=== PATIENT | male | born 1965 | race Two or more races ===

== ENCOUNTER 2024-09-01 08:36 | Inpatient (IN) | payer OTHER ==
[~2024-09-01] VITALS: Ht 177.8 cm; Wt 79.5 kg
[2024-09-01] MEDS: ACETAMINOPHEN 500 MG TAB or CAP PO ONE (09:00)
[2024-09-01] MEDS: LACTATED RINGER'S 2,200 ML IV ONE (09:15)
--- NOTE | 2024-09-01 09:15 | ECG ---
[facility] Test Date: 2024-09-01 Test Time: 08:57:26 Pat Name: MACIE NORIEGA Department: [facility] ED Patient ID: [id number] Room: 0270 Gender: M Wet Sander: gp : 1965 Requested By: VINICIUS SHEFFIELD Order Number: [id number] Reading MD: Alexandre Georges Measurements Intervals Tea Rate: 115 P: 59 OH: 110 QRS: 72 QRSD: 84 T: 13 QT: 308 QTc: 426 Interpretive Statements Sinus tachycardia Minimal ST depression, diffuse leads Electronically Signed On 09-03-2024 17:49:39 PDT by Alexandre Georges Please click the below link to view image of tracing.
[2024-09-01] MEDS: SODIUM CHLORIDE 0.9% 1,000 ML IV ONE (09:20)
--- NOTE | 2024-09-01 09:20 | ED.PDOC ---
General HPI Comments 58 y/o M, with PMHx of COPD, UTI's , and pneumonia presents to the ED for CC of urinary. Patient states, he has been experiencing suprapubic abdominal pain with associated bilateral flank pain and back pain onset, q4wytve. Patient reports, that he has had increased frequency. Upon arrival to the ED, patient is febrile with a slight temperature at 100.3F. Patient denies nausea, vomiting, or diarrhea. No other associated symptoms, modifiers, recent injuries or sick contacts present at this time. Chief Complaint: urinary Time Seen by MD: 09:00 Reviewed notes: Nurses Notes, Medications, Allergies Allergies: Coded Allergies: NO KNOWN ALLERGIES (Unverified , 09/01/24) Information Source: Patient Mode of Arrival: Ambulatory Severity: Moderate Inability to void: None Timing: Weeks Duration: Since onset Prehospital treatment: None Onset: Spontaneous Symptoms: Frequency History of: UTI Location: Suprapubic, (R) Flank, (L)Flank Penile discharge: None Modifying factors: None associated signs and symptoms: Fever, Flank Pain, Back Pain, Dysuria, Frequency Past Medical History PAST MEDICAL HISTORY: COPD, UTI'S Surgical History: Denies all surgeries Family History Family History: Unknown Social History Smoker: Non-Smoker Alcohol: Denies ETOH Use Drugs: Denies Drug Use Lives In: Home Constitutional: denies: chills, diaphoresis, fatigue, fever, malaise, sweats, weakness, others EENTM: denies: blurred vision, double vision, ear bleeding, ear discharge, ear drainage, ear pain, ear ringing, eye pain, eye redness, hearing loss, mouth pain, mouth swelling, nasal discharge, nose bleeding, nose congestion, nose pain, photophobia, tearing, throat pain, throat swelling, voice changes, others Respiratory: denies: cough, hemoptysis, orthopnea, SOB at rest, shortness of breath, SOB with excertion, stridor, wheezing, others Cardiovascular: denies: chest pain, dizzy spells, diaphoresis, Dyspnea on exertion, edema, irregular heart beat, left arm pain, lightheadedness, palpitations, PND, syncope, others Gastrointestinal: reports: abdominal pain; denies: abdomen distended, blood streaked bowels, constipated, diarrhea, dysphagia, difficulty swallowing, hematemesis, melena, nausea, poor appetite, poor fluid intake, rectal bleeding, rectal pain, vomiting, others Genitourinary: reports: dysuria, flank pain, frequency; denies: burning, hematuria, incontinence, penile discharge, penile sore, pain, testicle pain, testicle swelling, urgency, others Neurological: denies: dizziness, fainting, headache, left sided numbness, left sided weakness, numbness, paresthesia, pre-existing deficit, right sided numbness, right sided weakness, seizure, speech problems, tingling, tremors, weakness, others Musculoskeletal: reports: back pain; denies: gout, joint pain, joint swelling, muscle pain, muscle stiffness, neck pain, others Integumetry: denies: bruises, change in color, change in hair/nails, dryness, laceration, lesions, lumps, rash, wounds, others Allergic/Immunocompromised: denies: Difficulty Healing, Frequent Infections, Hives, Itching, others Hematologic/Lymphatic: denies: anemia, blood clots, easy bleeding, easy bruising, swollen glands, others Endocrine: denies: excessive hunger, excessive sweating, excessive thirst, excessive urination, flushing, intolerance to cold, intolerance to heat, unexplained weight gain, unexplained weight loss, others Psychiatric: denies: anxiety, bipolar disorder, depression, hopeless, panic disorder, schizophrenia, sleepless, suicidal, others All Other Systems: Reviewed and Negative Physical Exam General Appearance: No Apparent Distress, Normal, Other (febrile) HEENT: Normal ENT Inspection, Pharynx Normal Neck: Full Range of Motion, Non-Tender, Normal, Normal Inspection Respiratory: Chest Non-Tender, Lungs Clear, No Accessory Muscle Use, No Respiratory Distress, Normal Breath Sounds Cardiovascular: No Edema, No Murmur, No Gallop, Normal Peripheral Pulses, Regular Rate/Rhythm Breast Exam: Deferred Gastrointestinal: No Organomegaly, Non Tender, No Pulsatile Mass, Normal Bowel Sounds, Soft Genitalia: Deferred Pelvic: Deferred Rectal: Deferred Extremities: No calf tenderness, Normal capillary refill, Normal inspection, Normal range of motion, Non-tender, No pedal edema Musculoskeletal : Apperance: Normal Neurologic: Alert, welfare specialist II-XII nml as Tested, No Motor Deficits, Normal Affect, Normal Mood, No Sensory Deficits Cerebellar Function: Normal Reflexes: Normal Skin: Dry, Normal Color, Warm Lymphatic: No Adenopathy Was a procedure done? Was a procedure done?: No Differential Diagnosis Kidney stone (Female): N/A Kidney stone (Male): Pyelonephritis, Urinary obstruction, Urinary tract infection Penile/Scrotal: N/A Urinary Problem (Male): Plelonephritis Urinary Problem (Female): N/A X-Ray, Labs, Meds, VS Vital Signs Date Time Temp Pulse Resp B/P (MAP) Pulse Ox O2 Delivery O2 Flow Rate FiO2 09/01/24 10:52 86 18 98/59 (72) 98 09/01/24 09:34 98.7 101 18 90/55 (67) 94 98.7 09/01/24 09:34 106 18 92 Room Air 09/01/24 09:00 100.3 09/01/24 08:57 115 09/01/24 08:55 100.3 120 16 93/64 (74) 98 100.3 Lab Test 09/01/24 09:35 09/01/24 08:47 Range/Units White Blood Count 22.9 H 4.4-10.8 10^3/uL Red Blood Count 4.45 L 4.5-5.90 10^6/uL Hemoglobin 13.9 13.5-17.5 g/dL Hematocrit 40.3 L 41.0-53.0 % Mean Corpuscular Volume 90.6 80.0-100.0 fL Mean Corpuscular Hemoglobin 31.3 28.0-32.0 pg Mean Corpuscular Hemoglobin Concent 34.5 32.0-36.0 g/dL Red Cell Distribution Width 13.4 11.8-14.3 % Platelet Count 176 140-450 10^3/uL Mean Platelet Volume 8.6 6.9-10.8 fL Neutrophils (%) (Auto) 86.9 H 37.0-80.0 % Lymphocytes (%) (Auto) 3.2 L 10.0-50.0 % Monocytes (%) (Auto) 9.8 0.0-12.0 % Eosinophils (%) (Auto) 0.0 0.0-7.0 % Basophils (%) (Auto) 0.1 0.0-2.0 % Neutrophils # (Auto) 19.9 H 1.6-8.6 10 ^3/uL Lymphocytes # (Auto) 0.7 0.4-5.4 10 ^3/uL Monocytes # (Auto) 2.2 H 0-1.3 10 ^3/uL Eosinophils # (Auto) 0 0-0.8 10 ^3/uL Basophils # (Auto) 0 0-0.2 10 ^3/uL Nucleated Red Blood Cells 0.0 % Prothrombin Time 12.2 H 9.3-11.8 sec Prothrombin Time INR 1.17 H 0.9-1.15 Activated Partial Thromboplast Time 36.6 H 24.5-34.5 SEC Sodium Level 133 L 136-145 mmol/L Potassium Level 4.2 3.5-5.1 mmol/L Chloride Level 101 98-107 mmol/L Carbon Dioxide Level 23 20-31 mmol/L Anion Gap 9 5-15 Blood Urea Nitrogen 20 9-23 mg/dL Creatinine 1.42 H 0.700-1.30 mg/dL Glomerular Filtration Rate Calc 58 >90 mL/min BUN/Creatinine Ratio 14.1 10.0-20.0 Serum Glucose 131 H 74-106 mg/dL Lactic Acid Level 1.3 0.4-2.0 mmol/L Calcium Level 9.0 8.7-10.4 mg/dL Total Bilirubin 1.2 H 0.2-1.0 mg/dL Aspartate Amino Transferase (AST) 18 13-40 U/L Alanine Aminotransferase (ALT) 17 7-40 U/L Alkaline Phosphatase 71 46-116 U/L Total Protein 6.4 5.7-8.2 g/dL Albumin 4.4 3.2-4.8 g/dL Urine Color [place] H Yellow Urine Clarity Cloudy H Clear Urine pH 5.5 5.0-9.0 Urine Specific [place] 1.021 1.001-1.035 Urine Protein 1+ H Negative Urine Ketones Negative Negative Urine Blood 2+ H Negative /uL Urine Nitrite Negative Negative Urine Bilirubin Negative Negative Urine Urobilinogen Normal Negative mg/dL Urine Leukocyte Esterase 3+ Negative /uL Urine RBC 15 0 - 3 /hpf Urine WBC Clumps Present None Seen /hpf Urine Microscopic WBC 606 H 0-3 /HPF Urine Squamous Epithelial Cells Few <5 /hpf Urine Bacteria Mod H None Seen /hpf Urine Glucose Normal Normal mg/dL Current Medications Medications (Trade) Dose Ordered Sig/Mario Route Start Time Stop Time Status Last Admin Acetaminophen (Tylenol Tablet Or Capsule) 1,000 mg ONCE ONCE PO 09/01/24 09:00 09/01/24 09:01 DC 09/01/24 09:00 Lactated Ringer's 2,200 ml @ 2,200 mls/hr ONCE ONCE IV 09/01/24 09:15 09/01/24 10:14 DC 09/01/24 09:15 Vancomycin HCl 200 ml @ 200 mls/hr ONCE ONCE IV 09/01/24 09:15 09/01/24 10:14 DC 09/01/24 09:24 Sodium Chloride 1,000 ml @ 1,000 mls/hr Q1H ONCE IV 09/01/24 09:15 09/01/24 10:14 DC 09/01/24 09:20 [place] [id number] Ph: [phone] DIAGNOSTIC IMAGING Diagnostic Imaging Report : [id number] Signed PATIENT: MACIE NORIEGA ACCT: [id number] UNIT: [id number] : 1965 LOC: ER ROOM / BED: / AGE / SEX: 58 / M ADM STATUS: REG ER SERVICE 8 ORDERING PHYSICIAN: VINICIUS ZAPATA MD PROCEDURE(s): CXRP - CHEST PORTABLE REASON: ams ORDER NUMBER(s): [id number], ACCESSION NUMBER(s): [id number] INDICATION: ams TECHNIQUE: Frontal view of the chest. COMPARISON: None FINDINGS: . The heart and mediastinal contours are grossly unremarkable. There is no evidence of pleural disease. The lungs are clear. The bony structures of the chest are intact without fracture. IMPRESSION: 1. No evidence of acute disease. ATED BY: MALDONADO RAMSAY MD DICTATED DATE/TIME: 09/01/24940 SIGNED BY: MALDONADO RAMSAY MD SIGNED DATE/TIME: 09/01/24940 CC: Time of 1ST Reevaluation: 09:30 Reevaluation 1ST: Unchanged Patient Education/Counseling: Diagnosis, Treatment Family Education/Counseling: No Family Present SEPSIS Sepsis Screen Date sepsis recognized/suspect: Sep 01, 2024 Time Sepsis recognized/suspect: 0852 Recent Procedure: No On Antibiotic Therapy: No Respiratory Rate >20: No Heart Rate >90: Yes Temp<36 C (96.8 F) or >38.3 C: No SBP <90 or MAP <65 mmHG: No New Acute Mental Status Change: No Is the patient on CPAP, BIPAP,: No Physician Orders Chest Portable (09/01/24 09:09) Accucheck (09/01/24 09:09) Blood Culture (09/01/24 09:09) Cefepime 1gm/ 50ml (Maxipime 1gm/50ml) (09/01/24 14:00) Notify Md If Map <65 Or Bp<90 (09/01/24 09:09) If Map<65 Start Vasopressor (09/01/24 09:09) Sepsis Reassesment After Fluid (09/01/24 10:09) Vital Signs Date Time Temp Pulse Resp B/P (MAP) Pulse Ox O2 Delivery O2 Flow Rate FiO2 09/01/24 10:52 86 18 98/59 (72) 98 09/01/24 09:34 98.7 101 18 90/55 (67) 94 98.7 09/01/24 09:34 106 18 92 Room Air 09/01/24 09:00 100.3 09/01/24 08:57 115 09/01/24 08:55 100.3 120 16 93/64 (74) 98 100.3 Laboratory Tests Test 09/01/24 09:35 Lactic Acid Level 1.3 mmol/L (0.4-2.0) White Blood Count 22.9 10^3/uL (4.4-10.8) H Medications Medications Dose Ordered Sig/Mario Route Start Time Stop Time Status Last Admin Dose Admin Acetaminophen 1,000 mg ONCE ONCE PO 09/01/24 09:00 09/01/24 09:01 DC 09/01/24 09:00 Lactated Ringer's 2,200 ml @ 2,200 mls/hr ONCE ONCE IV 09/01/24 09:15 09/01/24 10:14 DC 09/01/24 09:15 Sodium Chloride 1,000 ml @ 1,000 mls/hr Q1H ONCE IV 09/01/24 09:15 09/01/24 10:14 DC 09/01/24 09:20 Vancomycin HCl 200 ml @ 200 mls/hr ONCE ONCE IV 09/01/24 09:15 09/01/24 10:14 DC 09/01/24 09:24 Departure 1 Departure Time of Disposition: 10:57 (Patient with cellulitis and concerning for sepsis. We will empirically cover patient with antibiotics. We will admit patient for further workup and expert consultation) Impression: Primary Impression: Cellulitis Qualified Codes: L03.116 - Cellulitis of left lower limb Additional Impression: Sepsis Qualified Codes: A41.9 - Sepsis, unspecified organism Disposition: ADMITTED INPATIENT Admit to: Med Surg Condition: Guarded Critical Care Note Critical Care Time?: Yes Critical care comment: Concern for sepsis Authorized and Performed by: Vinicius Zapata MD Total critical care time: Approximately 42 minutes Due to a high probability of clinically significant, life threatening deterioration, the patient required my highest level of preparedness to intervene emergently and I personally spent this critical care time directly and personally managing the patient. This critical care time included obtaining a history; examining the patient; pulse oximetry; ordering and review of studies; arranging urgent treatment with development of a management plan; evaluation of patient's response to treatment; frequent reassessment; and, discussions with other providers. This critical care time was performed to assess and manage the high probability of imminent, life-threatening deterioration that could result in multi-organ failure. It was exclusive of separately billable procedures and treating other patients and teaching time. Please see my other sections and the rest of the note for further information on patient assessment and treatment. Stability Stability form required: No Heart Score Heart Score: Heart Score Response (Comments) Value History N/A 0 EKG N/A 0 Age N/A 0 Risk Factors N/A 0 Troponin N/A 0 Total 0 I personally scribed for VINICIUS ZAPATA MD ([email or web address]) on 09/01/24 at 09:20. Electronically submitted by Vaishnavi Kebede ([email or web address]). I personally scribed for VINICIUS ZAPATA MD (DVLARCO) on 09/01/24 at 09:22. Electronically submitted by Vaishnavi Kebede ([email or web address]). I personally scribed for VINICIUS ZAPATA MD (DVLARCO) on 09/01/24 at 09:26. Electronically submitted by Vaishnavi Kbeede ([email or web address]). I personally scribed for VINICIUS ZAPATA MD (DVLARCO) on 09/01/24 at 09:28. Electronically submitted by Vaishnavi Kebede ([email or web address]). I personally scribed for VINICIUS [facility]APATA MD [facility] on 09/01/24 at 09:40. Electronically submitted by Vaishnavi Kebede ([email or web address]). I personally scribed for VINICIUS ZAPATA MD ([email or web address]) on 09/01/24 at 10:19. Electronically submitted by Vaishnavi Kebede ([email or web address]). VINICIUS ZAPATA MD Sep 01, 2024 09:20
[2024-09-01] MEDS: VANCOMYCIN 1GM/200ML PM 200 ML IV ONE (09:24)
--- NOTE | 2024-09-01 09:43 | DVH ---
INDICATION: ams TECHNIQUE: Frontal view of the chest. COMPARISON: None FINDINGS: . The heart and mediastinal contours are grossly unremarkable. There is no evidence of pleural disea se. The lungs are clear. The bony structures of the chest are intact without fracture. IMPRESSION: 1. No evidence of acute disease.
[2024-09-01 09:48] LABS: Urine Protein, UAD 1+ (Negative); Urine WBC Clumps PRESENT /hpf (None Seen)
[2024-09-01 09:54] LABS: Hematocrit 40.3 % (41.0-53.0); Hemoglobin 13.9 g/dL (13.5-17.5); Mean Corpuscular Hemoglobin 31.3 pg (28.0-32.0); Mean Corpuscular Volume 90.6 fL (80.0-100.0); Nucleated Red Blood Cells % 0.0 %
[2024-09-01 10:08] LABS: INR 1.17 (0.9-1.15); Partial Thromboplastin Time 36.6 SEC (24.5-34.5); Prothrombin Time 12.2 sec (9.3-11.8)
[2024-09-01 10:10] LABS: Alanine Aminotransferase 17 U/L (7-40); Albumin 4.4 g/dL (3.2-4.8); Alkaline Phosphatase 71 U/L (46-116); Anion Gap 9 (5-15); BUN/Creatinine Ratio 14.1 (10.0-20.0); Blood Urea Nitrogen 20 mg/dL (9-23); Calcium 9.0 mg/dL (8.7-10.4); Carbon Dioxide 23 mmol/L (20-31); Chloride 101 mmol/L (98-107); Potassium 4.2 mmol/L (3.5-5.1); Total Protein 6.4 g/dL (5.7-8.2)
[2024-09-01 10:16] LABS: Bilirubin, Total 1.2 mg/dL (0.2-1.0); Glucose 131 mg/dL (74-106); Sodium 133 mmol/L (136-145)
[2024-09-01] MEDS: CEFEPIME 1GM/ 50ML 50 ML IV ONE (10:57)
[2024-09-01] MEDS: CEFEPIME 1GM/ 50ML 50 ML IV SCH (14:47)
[2024-09-01] MEDS ORDERED: VANCOMYCIN PER PHARMACY 0 MG IV SCH (15:30)
[2024-09-01] MEDS ORDERED: ONDANSETRON HCL 4 MG/2 ML VIAL IV PRN (15:30)
[2024-09-01] MEDS ORDERED: DOCUSATE SOD 100 MG CAP PO PRN (15:30)
--- NOTE | 2024-09-01 15:42 | DVHHP2 ---
History of Present Illness Reason for Visit: Abdominal pain History of Present Illness Alec Salamanca is a 58-year-old male with past medical history of COPD, UTI's due to fistula, and colostomy and reversal, who came to the hospital due to abdominal pain. Patient states he has been experiencing pelvic pain, dysuria, and frequency, for 2 weeks. He states he did not come to the hospital sooner because he was hoping it would get better. He has been experiencing fever and chills for the last couple of days. Pulmonary: COPD Renal/: UTI (Had previous fistula) Past Surgical History: Other (Colostomy and reversal) Smoke: 1 pack per day ALCOHOL: none Drugs: None Lives: with Family Domestic Violence: Neg Review of Systems Constitutional: Yes: Fever, Chills, Sweats, Weakness; No: Malaise, Other Eyes: No: Pain, Vision change, Conjunctivae inflammation, Eyelid inflammation, Other, Redness ENT: No: Ear pain, Ear discharge, Nose pain, Nose discharge, Nose congestion, Mouth pain, Mouth swelling, Throat pain, Throat swelling, Other Respiratory: No: Cough, Dry, Shortness of breath, SOB with excertion, Wheezing, Hemoptysis, Pleuritic Pain, Sputum, Wheezing, Other Cardiovascular: No: Chest Pain, Palpitations, Orthopnea, Paroxysmal Noc. Dyspnea, Edema, Lt Headedness, Other Gastrointestinal: Abdominal Pain (pelvic pain); No: Nausea, Vomiting, Diarrhea, Constipation, Melena, Hematochezia, Other Genitourinary: Dysuria, Frequency; No Incontinence, No Hematuria, No Retention, No Other Musculoskeletal: No: other, neck pain, shoulder pain, arm pain, back pain, hand pain, leg pain, foot pain Skin: No: Rash, Lesions, Jaundice, Bruising, Other Neurological: No: Weakness, Numbness, Incoordination, Change in speech, Confusion, Seizures, Other Allergies: Coded Allergies: NO KNOWN ALLERGIES (Unverified , 09/01/24) Medications Current Medications Medications Dose Ordered Sig/Mario Route Start Time Stop Time Status Last Admin Dose Admin Cefepime HCl 50 ml @ 12.5 mls/hr Q8HR IV 09/01/24 14:00 Acetaminophen/ Hydrocodone Bitart 1 tab Q4HP PRN PO 09/01/24 15:30 UNV Ondansetron HCl 4 mg Q4HP PRN IV 09/01/24 15:30 UNV Docusate Sodium 100 mg BIDPRN PRN PO 09/01/24 15:30 UNV Acetaminophen 650 mg Q6HP PRN PO 09/01/24 15:30 UNV Morphine Sulfate 2 mg Q4HPRN PRN IV 09/01/24 15:30 UNV Ipratropium [place] 0.5 mg Q4HPRN PRN NEB 09/01/24 15:30 UNV Albuterol 2.5 mg Q4HPRN PRN NEB 09/01/24 15:30 UNV Vancomycin HCl 0 ml @ 0 mls/hr UD IV 09/01/24 15:30 UNV Exam Vital Signs Vital Signs Date Time Temp Pulse Resp B/P (MAP) Pulse Ox O2 Delivery O2 Flow Rate FiO2 09/01/24 10:52 86 18 98/59 (72) 98 09/01/24 09:34 98.7 98.7 09/01/24 09:34 Room Air General Appearance: Alert, Oriented X3 HEENT: Atraumatic, PERRLA Respiratory: Clear to auscultation, Normal air movement Cardiovascular: Normal S1, Normal S2, Other (ST) Abdominal: Normal bowel sounds, Soft, Other (pelvic pain, dysuria) Extremities: No clubbing, No cyanosis, No edema, Normal pulses, No tenderness/swelling Skin: No rashes, No breakdown, No significant lesion Neuro: Normal gait, Normal speech, Strength at 5/5 X4 ext Psych/Mental Status: Mental status NL, Mood NL Labs/Xrays Labs Test 09/01/24 09:35 09/01/24 08:47 Range/Units White Blood Count 22.9 H 4.4-10.8 10^3/uL Red Blood Count 4.45 L 4.5-5.90 10^6/uL Hemoglobin 13.9 13.5-17.5 g/dL Hematocrit 40.3 L 41.0-53.0 % Mean Corpuscular Volume 90.6 80.0-100.0 fL Mean Corpuscular Hemoglobin 31.3 28.0-32.0 pg Mean Corpuscular Hemoglobin Concent 34.5 32.0-36.0 g/dL Red Cell Distribution Width 13.4 11.8-14.3 % Platelet Count 176 140-450 10^3/uL Mean Platelet Volume 8.6 6.9-10.8 fL Neutrophils (%) (Auto) 86.9 H 37.0-80.0 % Lymphocytes (%) (Auto) 3.2 L 10.0-50.0 % Monocytes (%) (Auto) 9.8 0.0-12.0 % Eosinophils (%) (Auto) 0.0 0.0-7.0 % Basophils (%) (Auto) 0.1 0.0-2.0 % Neutrophils # (Auto) 19.9 H 1.6-8.6 10 ^3/uL Lymphocytes # (Auto) 0.7 0.4-5.4 10 ^3/uL Monocytes # (Auto) 2.2 H 0-1.3 10 ^3/uL Eosinophils # (Auto) 0 0-0.8 10 ^3/uL Basophils # (Auto) 0 0-0.2 10 ^3/uL Nucleated Red Blood Cells 0.0 % Prothrombin Time 12.2 H 9.3-11.8 sec Prothrombin Time INR 1.17 H 0.9-1.15 Activated Partial Thromboplast Time 36.6 H 24.5-34.5 SEC Sodium Level 133 L 136-145 mmol/L Potassium Level 4.2 3.5-5.1 mmol/L Chloride Level 101 98-107 mmol/L Carbon Dioxide Level 23 20-31 mmol/L Anion Gap 9 5-15 Blood Urea Nitrogen 20 9-23 mg/dL Creatinine 1.42 H 0.700-1.30 mg/dL Glomerular Filtration Rate Calc 58 >90 mL/min BUN/Creatinine Ratio 14.1 10.0-20.0 Serum Glucose 131 H 74-106 mg/dL Lactic Acid Level 1.3 0.4-2.0 mmol/L Calcium Level 9.0 8.7-10.4 mg/dL Total Bilirubin 1.2 H 0.2-1.0 mg/dL Aspartate Amino Transferase (AST) 18 13-40 U/L Alanine Aminotransferase (ALT) 17 7-40 U/L Alkaline Phosphatase 71 46-116 U/L Total Protein 6.4 5.7-8.2 g/dL Albumin 4.4 3.2-4.8 g/dL Urine Color [place] H Yellow Urine Clarity Cloudy H Clear Urine pH 5.5 5.0-9.0 Urine Specific [place] 1.021 1.001-1.035 Urine Protein 1+ H Negative Urine Ketones Negative Negative Urine Blood 2+ H Negative /uL Urine Nitrite Negative Negative Urine Bilirubin Negative Negative Urine Urobilinogen Normal Negative mg/dL Urine Leukocyte Esterase 3+ Negative /uL Urine RBC 15 0 - 3 /hpf Urine WBC Clumps Present None Seen /hpf Urine Microscopic WBC 606 H 0-3 /HPF Urine Squamous Epithelial Cells Few <5 /hpf Urine Bacteria Mod H None Seen /hpf Urine Glucose Normal Normal mg/dL TECHNIQUE: Frontal view of the chest. FINDINGS: . The heart and mediastinal contours are grossly unremarkable. There is no evidence of pleural disease. The lungs are clear. The bony structures of the chest are intact without fracture. IMPRESSION: 1. No evidence of acute disease. SEPSIS Sepsis Screen Date sepsis recognized/suspect: Sep 01, 2024 Time Sepsis recognized/suspect: 851 Recent Procedure: No On Antibiotic Therapy: No Respiratory Rate >20: No Heart Rate >90: Yes Temp<36 C (96.8 F) or >38.3 C: No SBP <90 or MAP <65 mmHG: No New Acute Mental Status Change: No Is the patient on CPAP, BIPAP,: No Physician Orders Chest Portable (09/01/24 09:09) Accucheck (09/01/24 09:09) Blood Culture (09/01/24 09:09) Cefepime 1gm/ 50ml (Maxipime 1gm/50ml) (09/01/24 14:00) Notify Md If Map <65 Or Bp<90 (09/01/24 09:09) If Map<65 Start Vasopressor (09/01/24 09:09) Sepsis Reassesment After Fluid (09/01/24 10:09) Admit (09/01/24 15:16) Code Status (09/01/24 15:16) Hydrocodone-Acet 5/325mg Tab ([place] 5/32 (09/01/24 15:30) Ondansetron Hcl (Zofran) (09/01/24 15:30) Docusate Sodium Capsule (Colace Capsule) (09/01/24 15:30) Complete Blood Count (09/02/24 04:00) Comprehensive Metabolic Panel (09/02/24 04:00) Condition: Serious (09/01/24 15:16) Acetaminophen Tablet (Tylenol Tablet) (09/01/24 15:30) Morphine Sulfate Injection (09/01/24 15:30) Urine Bacterial Culture (09/01/24 15:16) Ipratropium Medneb (Atrovent Medneb) (09/01/24 15:30) Albuterol Medneb (Ventolin Medneb) (09/01/24 15:30) Vancomycin Per Pharmacy (09/01/24 15:30) Vital Signs Date Time Temp Pulse Resp B/P (MAP) Pulse Ox O2 Delivery O2 Flow Rate FiO2 09/01/24 10:52 86 18 98/59 (72) 98 09/01/24 09:34 98.7 101 18 90/55 (67) 94 98.7 09/01/24 09:34 106 18 92 Room Air 09/01/24 09:00 100.3 09/01/24 08:57 115 09/01/24 08:55 100.3 120 16 93/64 (74) 98 100.3 Laboratory Tests Test 09/01/24 09:35 Lactic Acid Level 1.3 mmol/L (0.4-2.0) White Blood Count 22.9 10^3/uL (4.4-10.8) H Medications Medications Dose Ordered Sig/Mario Route Start Time Stop Time Status Last Admin Dose Admin Acetaminophen 1,000 mg ONCE ONCE PO 09/01/24 09:00 09/01/24 09:01 DC 09/01/24 09:00 1,000 MG Cefepime HCl 50 ml @ 50 mls/hr ONCE ONCE IV 09/01/24 09:45 09/01/24 10:44 DC 09/01/24 10:57 50 MLS/HR Lactated Ringer's 2,200 ml @ 2,200 mls/hr ONCE ONCE IV 09/01/24 09:15 09/01/24 10:14 DC 09/01/24 09:15 2,200 MLS/HR Sodium Chloride 1,000 ml @ 1,000 mls/hr Q1H ONCE IV 09/01/24 09:15 09/01/24 10:14 DC 09/01/24 09:20 1,000 MLS/HR Vancomycin HCl 200 ml @ 200 mls/hr ONCE ONCE IV 09/01/24 09:15 09/01/24 10:14 DC 09/01/24 09:24 200 MLS/HR Assessment/Plan Assessment/Plan Assessment: Complicated urinary tract infection, SIRS, Leukocytosis, Dehydration, Acute kidney injury, Plan: Admit to Med-Surg, IV antibiotics, IV hydration, Urine culture, Blood culture, Plan discussed with: Patient My Orders Orders - EMERY MCKEON Procedure Category Date Status Time Admit ADMIT 09/01/24 Transmitted 15:16 Code Status CODE 09/01/24 Transmitted 15:16 Hydrocodone-Acet PHA 09/01/24 Transmitted 5/325mg Tab ([place] 15:30 Ondansetron Hcl PHA 09/01/24 Transmitted (Zofran) 15:30 Docusate Sodium PHA 09/01/24 Transmitted Capsule (Colace 15:30 Complete Blood Count LAB 09/02/24 Verified 04:00 Comprehensive LAB 09/02/24 Verified Metabolic Panel 04:00 Condition: Serious ROMÁN 09/01/24 Transmitted 15:16 Acetaminophen Tablet PHA 09/01/24 Transmitted (Tylenol Tablet) 15:30 Morphine Sulfate PHA 09/01/24 Transmitted Injection 15:30 Urine Bacterial CHRISTINA 09/01/24 Transmitted Culture 15:16 Ipratropium Medneb PHA 09/01/24 Transmitted (Atrovent Medneb) 15:30 Albuterol Medneb PHA 09/01/24 Transmitted (Ventolin Medneb) 15:30 Vancomycin Per PHA 09/01/24 Transmitted Pharmacy 15:30 Date of Service: Sep 01, 2024 Billing Provider: EMERY MCKEON Common Visit Codes: [id number] INP/OBS CARE (MOD) EMERY MCKEON Sep 01, 2024 15:42
--- NOTE | 2024-09-01 15:52 | ED.PDOC ---
Departure 1 Departure Time of Disposition: 15:52 (Patient with a complicated urinary tract infection cover sepsis. We will admit patient for further workup) Impression: Primary Impression: Sepsis Qualified Codes: A41.9 - Sepsis, unspecified organism Additional Impression: Complicated UTI (urinary tract infection) Disposition: 09 ADMITTED INPATIENT Admit to: Med Surg Condition: Guarded VINICIUS SHEFFIELD MD Sep 01, 2024 15:52
[2024-09-01 16:18] VITALS: BP 98/59; PULSE 86; RESP 18; TEMP 98.7; O2SAT 98
[2024-09-01 20:56] VITALS: PULSE 105; RESP 16; O2SAT 95
[2024-09-01 21:00] VITALS: BP 124/73; PULSE 105; RESP 16; TEMP 103.7; TEMP 98.6; O2SAT 95
[2024-09-01] MEDS: HYDROcodone-ACET 5/325MG TAB PO PRN (21:21)
[2024-09-01 23:05] VITALS: O2SAT 95
[2024-09-02] VITALS (8 sets, daily range): BP systolic 101–120; BP diastolic 62–74; PULSE 80–104; RESP 14–20; TEMP 98.2–100.3; O2SAT 91–96
[2024-09-02] MEDS: MORPHINE SULFATE INJ 2 MG/ml SYRG IV PRN (00:33)
[2024-09-02 07:16] LABS: Hematocrit 35.6 % (41.0-53.0); Hemoglobin 12.5 g/dL (13.5-17.5); Mean Corpuscular Hemoglobin 31.5 pg (28.0-32.0); Mean Corpuscular Volume 89.9 fL (80.0-100.0); Nucleated Red Blood Cells % 0.0 %
[2024-09-02 07:37] LABS: Alanine Aminotransferase 16 U/L (7-40); Albumin 3.8 g/dL (3.2-4.8); Alkaline Phosphatase 65 U/L (46-116); Anion Gap 7 (5-15); BUN/Creatinine Ratio 12.8 (10.0-20.0); Bilirubin, Total 0.7 mg/dL (0.2-1.0); Blood Urea Nitrogen 14 mg/dL (9-23); Calcium 8.8 mg/dL (8.7-10.4); Carbon Dioxide 25 mmol/L (20-31); Chloride 102 mmol/L (98-107); Glucose 115 mg/dL (74-106); Potassium 4.0 mmol/L (3.5-5.1); Sodium 134 mmol/L (136-145); Total Protein 5.7 g/dL (5.7-8.2)
[2024-09-02] MEDS: VANCOMYCIN 1.25GM/250ML 250 ML IV SCH (10:39)
[2024-09-02] MEDS: ACETAMINOPHEN 325 MG TAB PO PRN (10:39)
[2024-09-02] MEDS ORDERED: ACETAMINOPHEN 325 MG TAB PO PRN (16:00)
[2024-09-02] MEDS: SODIUM CHLORIDE 0.9% 1,000 ML IV SCH (16:00)
--- NOTE | 2024-09-02 18:49 | DVHPN2 ---
Subjective I AM ASSUMING THE CARE OF THE PATIENT FROM TODAY ONWARDS THIS IS A FOLLOW UP ON 58-YEAR-OLD MALE WITH A KNOWN HISTORY OF PREVIOUS COLON OBSTRUCTION STATUS POST COLOSTOMY STATUS POST REVERSAL OF COLOSTOMY, RECURRENT UTI WITH A HISTORY OF COLOVESICAL FISTULA PRESENTED TO THE HOSPITAL WITH THE ABDOMINAL PAIN PELVIC PAIN DYSURIA FOUND TO HAVE UTI. Reviewed: Care Plan Changes from previous H/P or p: No Changes Eyes: No Pain, No Vision change, No Conjunctivae inflammation, No Eyelid inflammation, No Other, No Redness ENT: No Ear pain, No Ear discharge, No Nose pain, No Nose discharge, No Nose congestion, No Mouth pain, No Mouth swelling, No Throat pain, No Throat swelling, No Other Cardiovascular: No Chest Pain, No Palpitations, No Orthopnea, No Paroxysmal Noc. Dyspnea, No Edema, No Lt Headedness, No Other Respiratory: No Cough, No Dry, No Shortness of breath, No SOB with excertion, No Wheezing, No Hemoptysis, No Pleuritic Pain, No Sputum, No Other Gastrointestinal: No Nausea, No Vomiting; Abdominal Pain (pelvic pain); No Diarrhea, No Constipation, No Melena, No Hematochezia, No Other Genitourinary: Dysuria, Frequency; No Incontinence, No Hematuria, No Retention, No Other Musculoskeletal: No other, No neck pain, No shoulder pain, No arm pain, No back pain, No hand pain, No leg pain, No foot pain Skin: No Rash, No Lesions, No Jaundice, No Bruising, No Other Objective Vitals Vital Signs Date Time Temp Pulse Resp B/P (MAP) Pulse Ox O2 Delivery O2 Flow Rate FiO2 09/02/24 16:29 98.6 89 20 112/71 (85) 94 98.6 09/02/24 09:36 Room Air* 0 21 Intake/Output Intake and Output 09/02/24 07:00 Intake Total 2700 ml Output Total 400 ml Balance 2300 ml Intake Oral 400 ml IV Total 2300 ml Output Urine Total 400 ml Exam HEENT PUPILS ARE REACTIVE NECK IS SUPPLE CV IS S1-S2 REGULAR RATE AND RHYTHM RESPIRATORY DIMINISHED BREATH SOUNDS BASES GI POSITIVE BOWEL SOUND EXTREMITY 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 Medications Current Medications Medications Dose Ordered Sig/Mario Route Start Time Stop Time Status Last Admin Dose Admin Cefepime HCl 50 ml @ 12.5 mls/hr Q8HR IV 09/01/24 14:00 09/02/24 14:45 12.5 MLS/HR Acetaminophen/ Hydrocodone Bitart 1 tab Q4HP PRN PO 09/01/24 15:30 09/02/24 14:56 1 TAB Ondansetron HCl 4 mg Q4HP PRN IV 09/01/24 15:30 Docusate Sodium 100 mg BIDPRN PRN PO 09/01/24 15:30 Morphine Sulfate 2 mg Q4HPRN PRN IV 09/01/24 15:30 09/02/24 16:17 2 MG Ipratropium [place] 0.5 mg Q4HPRN PRN NEB 09/01/24 15:30 Albuterol 2.5 mg Q4HPRN PRN NEB 09/01/24 15:30 Vancomycin HCl 0 ml @ 0 mls/hr UD IV 09/01/24 15:30 Vancomycin HCl 250 ml @ 200 mls/hr Q12H IV 09/02/24 10:00 09/02/24 10:39 200 MLS/HR Acetaminophen 650 mg Q4HPRN PRN PO 09/02/24 16:00 Sodium Chloride 1,000 ml @ 125 mls/hr Q8H IV 09/02/24 16:00 Laboratory Results Laboratory Tests 09/02/24 06:26 Chemistry Test 09/02/24 06:26 Albumin 3.8 g/dL (3.2-4.8) Calcium Level 8.8 mg/dL (8.7-10.4) Total Protein 5.7 g/dL (5.7-8.2) LFT Test 09/02/24 06:26 Alanine Aminotransferase (ALT) 16 U/L (7-40) Alkaline Phosphatase 65 U/L (46-116) Aspartate Amino Transferase (AST) 23 U/L (13-40) Total Bilirubin 0.7 mg/dL (0.2-1.0) Urinalysis Test 09/01/24 08:47 Urine Color [place] (Yellow) H Urine Clarity Cloudy (Clear) H Urine pH 5.5 (5.0-9.0) Urine Specific [place] 1.021 (1.001-1.035) Urine Protein 1+ (Negative) H Urine Ketones Negative (Negative) Urine Blood 2+ /uL (Negative) H Urine Nitrite Negative (Negative) Urine Bilirubin Negative (Negative) Urine Urobilinogen Normal mg/dL (Negative) Urine Leukocyte Esterase 3+ /uL (Negative) Urine RBC 15 /hpf (0 - 3) Urine WBC Clumps Present /hpf (None Seen) Urine Microscopic WBC 606 /HPF (0-3) H Urine Squamous Epithelial Cells Few /hpf (<5) Urine Bacteria Mod /hpf (None Seen) H Urine Glucose Normal mg/dL (Normal) Microbiology Microbiology Date/Time Source Procedure Growth Status 09/01/24 09:35 Blood Blood Culture - Preliminary NO GROWTH AFTER 24 HOURS OF INCUBATION. Resulted 09/01/24 08:47 Voided Urine Urine Culture - Preliminary Resulted Assessment/Plan Assessment/Plan 58-YEAR-OLD MALE WITH A KNOWN HISTORY OF: NUMBER OBSTRUCTION STATUS POST COLOSTOMY STATUS POST REVERSAL OF COLOSTOMY, HISTORY OF FOLLOW UP CYCLE FISTULA AND RECURRENT UTI PRESENTED TO THE HOSPITAL WITH THE ABDOMINAL PAIN PELVIC PAIN AND DYSURIA FOUND TO HAVE 1. SEPSIS SECONDARY TO UTI 2. COMPLICATED UTI 3. ACUTE KIDNEY INJURY SUSPECTED SECONDARY TO VASOMOTOR NEPHROPATHY 4. PREVIOUS HISTORY OF COLONIC OBSTRUCTION STATUS POST REVERSAL OF COLOSTOMY 5. PREVIOUS HISTORY OF COLOVESICAL FISTULA. 6. LEUKOCYTOSIS -IV ANTIBIOTICS FOLLOW UP BLOOD CULTURE FOLLOW UP URINE CULTURE -PLAN DISCUSSED WITH THE PATIENT WHO UNDERSTAND VERBALIZED UNDERSTANDING AND AGREEABLE TO PLAN. Plan discussed with: Patient My Orders Orders - ANA SOOD MD Procedure Category Date Status Time Acetaminophen Tablet PHA 09/02/24 In Process (Tylenol Tablet) 16:00 Sodium Chloride 0.9% PHA 09/02/24 In Process 16:00 Enoxaparin Sodium PHA 09/02/24 Verified (Lovenox) 19:00 Enoxaparin Sodium PHA 09/03/24 Verified (Lovenox) 10:00 Date of Service: Sep 02, 2024 Billing Provider: ANA SOOD MD Common Visit Codes: [id number] INP/OBS CARE(MOD) ANA SOOD MD Sep 02, 2024 18:49
[2024-09-02] MEDS: ENOXAPARIN SOD 40 MG/0.4 ML SYRINGE SC ONE (19:02)
[2024-09-03] VITALS (8 sets, daily range): BP systolic 104–126; BP diastolic 66–84; PULSE 75–88; RESP 14–20; TEMP 97.9–98.6; O2SAT 92–100
[2024-09-03 05:21] LABS: Hematocrit 35.0 % (41.0-53.0); Hemoglobin 12.2 g/dL (13.5-17.5); Mean Corpuscular Hemoglobin 31.1 pg (28.0-32.0); Mean Corpuscular Volume 89.1 fL (80.0-100.0); Nucleated Red Blood Cells % 0.0 %
[2024-09-03 05:32] LABS: Anion Gap 6 (5-15); Carbon Dioxide 23 mmol/L (20-31); Chloride 105 mmol/L (98-107); Potassium 3.5 mmol/L (3.5-5.1); Sodium 134 mmol/L (136-145)
[2024-09-03 05:33] LABS: Calcium 8.4 mg/dL (8.7-10.4)
[2024-09-03 05:38] LABS: BUN/Creatinine Ratio 17.1 (10.0-20.0); Blood Urea Nitrogen 12 mg/dL (9-23); Magnesium 1.9 mg/dL (1.6-2.6)
[2024-09-03 05:40] LABS: Glucose 107 mg/dL (74-106)
[2024-09-03] MEDS: ENOXAPARIN SOD 40 MG/0.4 ML SYRINGE SC SCH (08:29)
[2024-09-03] MEDS: IPRATROPIUM BROM 0.5 MG/2.5ML INH SOL NEB PRN (08:57)
[2024-09-03] MEDS: ALBUTEROL SULF 2.5 MG/0.5ML(0.5%) NEB SOLN NEB PRN (08:57)
--- NOTE | 2024-09-03 17:03 | DVHPN2 ---
Subjective THIS IS A FOLLOW UP ON 58-YEAR-OLD MALE WITH A KNOWN HISTORY OF PREVIOUS COLON OBSTRUCTION STATUS POST COLOSTOMY STATUS POST REVERSAL OF COLOSTOMY, RECURRENT UTI WITH A HISTORY OF COLOVESICAL FISTULA PRESENTED TO THE HOSPITAL WITH THE ABDOMINAL PAIN PELVIC PAIN DYSURIA FOUND TO HAVE UTI. Reviewed: Care Plan Changes from previous H/P or p: No Changes Eyes: No Pain, No Vision change, No Conjunctivae inflammation, No Eyelid inflammation, No Other, No Redness ENT: No Ear pain, No Ear discharge, No Nose pain, No Nose discharge, No Nose congestion, No Mouth pain, No Mouth swelling, No Throat pain, No Throat swelling, No Other Cardiovascular: No Chest Pain, No Palpitations, No Orthopnea, No Paroxysmal Noc. Dyspnea, No Edema, No Lt Headedness, No Other Respiratory: No Cough, No Dry, No Shortness of breath, No SOB with excertion, No Wheezing, No Hemoptysis, No Pleuritic Pain, No Sputum, No Other Gastrointestinal: No Nausea, No Vomiting; Abdominal Pain (pelvic pain); No Diarrhea, No Constipation, No Melena, No Hematochezia, No Other Genitourinary: Dysuria, Frequency; No Incontinence, No Hematuria, No Retention, No Other Musculoskeletal: No other, No neck pain, No shoulder pain, No arm pain, No back pain, No hand pain, No leg pain, No foot pain Skin: No Rash, No Lesions, No Jaundice, No Bruising, No Other Objective Vitals Vital Signs Date Time Temp Pulse Resp B/P (MAP) Pulse Ox O2 Delivery O2 Flow Rate FiO2 09/03/24 16:24 82 20 108/84 09/03/24 16:20 97.9 96 97.9 09/03/24 08:50 Room Air* 0 21 Intake/Output Intake and Output 09/03/24 07:00 Intake Total 2150 ml Output Total 300 ml Balance 1850 ml Intake Oral 1300 ml IV Total 850 ml Output Urine Total 300 ml # Voids 4 # Bowel Movements 2 Exam HEENT PUPILS ARE REACTIVE NECK IS SUPPLE CV IS S1-S2 REGULAR RATE AND RHYTHM RESPIRATORY DIMINISHED BREATH SOUNDS BASES GI POSITIVE BOWEL SOUND 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 Medications Current Medications Medications Dose Ordered Sig/Mario Route Start Time Stop Time Status Last Admin Dose Admin Cefepime HCl 50 ml @ 12.5 mls/hr Q8HR IV 09/01/24 14:00 09/03/24 16:24 12.5 MLS/HR Acetaminophen/ Hydrocodone Bitart 1 tab Q4HP PRN PO 09/01/24 15:30 09/03/24 10:58 1 TAB Ondansetron HCl 4 mg Q4HP PRN IV 09/01/24 15:30 Docusate Sodium 100 mg BIDPRN PRN PO 09/01/24 15:30 Morphine Sulfate 2 mg Q4HPRN PRN IV 09/01/24 15:30 09/03/24 16:24 2 MG Ipratropium [place] 0.5 mg Q4HPRN PRN NEB 09/01/24 15:30 09/03/24 08:57 0.5 MG Albuterol 2.5 mg Q4HPRN PRN NEB 09/01/24 15:30 09/03/24 08:57 2.5 MG Vancomycin HCl 0 ml @ 0 mls/hr UD IV 09/01/24 15:30 Vancomycin HCl 250 ml @ 200 mls/hr Q12H IV 09/02/24 10:00 09/03/24 10:00 200 MLS/HR Acetaminophen 650 mg Q4HPRN PRN PO 09/02/24 16:00 Sodium Chloride 1,000 ml @ 125 mls/hr Q8H IV 09/02/24 16:00 09/03/24 08:00 125 MLS/HR Enoxaparin Sodium 40 mg DAILY SC 09/03/24 10:00 09/03/24 08:29 40 MG Laboratory Results Laboratory Tests 09/03/24 04:26 Chemistry Test 09/03/24 04:26 Calcium Level 8.4 mg/dL (8.7-10.4) L Magnesium Level 1.9 mg/dL (1.6-2.6) Urinalysis Test 09/01/24 08:47 Urine Color [place] (Yellow) H Urine Clarity Cloudy (Clear) H Urine pH 5.5 (5.0-9.0) Urine Specific [place] 1.021 (1.001-1.035) Urine Protein 1+ (Negative) H Urine Ketones Negative (Negative) Urine Blood 2+ /uL (Negative) H Urine Nitrite Negative (Negative) Urine Bilirubin Negative (Negative) Urine Urobilinogen Normal mg/dL (Negative) Urine Leukocyte Esterase 3+ /uL (Negative) Urine RBC 15 /hpf (0 - 3) Urine WBC Clumps Present /hpf (None Seen) Urine Microscopic WBC 606 /HPF (0-3) H Urine Squamous Epithelial Cells Few /hpf (<5) Urine Bacteria Mod /hpf (None Seen) H Urine Glucose Normal mg/dL (Normal) Microbiology Microbiology Date/Time Source Procedure Growth Status 09/01/24 09:35 Blood Blood Culture - Preliminary NO GROWTH AFTER 48 HOURS OF INCUBATION. Resulted 09/01/24 08:47 Voided Urine Urine Culture - Preliminary Resulted Assessment/Plan Assessment/Plan 58-YEAR-OLD MALE WITH A KNOWN HISTORY OF: NUMBER OBSTRUCTION STATUS POST COLOSTOMY STATUS POST REVERSAL OF COLOSTOMY, HISTORY OF FOLLOW UP CYCLE FISTULA AND RECURRENT UTI PRESENTED TO THE HOSPITAL WITH THE ABDOMINAL PAIN PELVIC PAIN AND DYSURIA FOUND TO HAVE 1. SEPSIS SECONDARY TO UTI 2. COMPLICATED UTI 3. ACUTE KIDNEY INJURY SUSPECTED SECONDARY TO VASOMOTOR NEPHROPATHY 4. PREVIOUS HISTORY OF COLONIC OBSTRUCTION STATUS POST REVERSAL OF COLOSTOMY 5. PREVIOUS HISTORY OF COLOVESICAL FISTULA. 6. LEUKOCYTOSIS -IV ANTIBIOTICS FOLLOW UP BLOOD CULTURE FOLLOW UP URINE CULTURE -PLAN DISCUSSED WITH THE PATIENT WHO UNDERSTAND VERBALIZED UNDERSTANDING AND AGREEABLE TO PLAN. Plan discussed with: Patient My Orders Orders - ANA SOOD MD Procedure Category Date Status Time Enoxaparin Sodium PHA 09/03/24 In Process (Lovenox) 10:00 Clostridium Difficile CHRISTINA 09/03/24 Logged Toxin 16:10 Date of Service: Sep 03, 2024 Billing Provider: ANA SOOD MD Common Visit Codes: [id number] INP/OBS CARE(MOD) ANA SODO MD Sep 03, 2024 17:03
[2024-09-04] VITALS (9 sets, daily range): BP systolic 104–128; BP diastolic 67–81; PULSE 70–81; RESP 17–19; TEMP 36.2; O2SAT 94–96
[2024-09-04 07:42] LABS: Hematocrit 35.1 % (41.0-53.0); Hemoglobin 12.5 g/dL (13.5-17.5); Mean Corpuscular Hemoglobin 31.5 pg (28.0-32.0); Mean Corpuscular Volume 88.7 fL (80.0-100.0); Nucleated Red Blood Cells % 0.0 %
[2024-09-04] MEDS ORDERED: ALBUAER3 IN ×2 (16:38→17:24)
[2024-09-04] MEDS ORDERED: CEFD300C2 PO ×2 (16:38→17:24)
--- NOTE | 2024-09-04 17:25 | DVHDS2 ---
Discharge Summary Date of Admission Sep 01, 2024 at 15:16 Date of Discharge: Sep 04, 2024 Labs/Diagnostic Data: Laboratory Results Test 09/04/24 05:45 09/03/24 20:47 09/03/24 04:26 09/02/24 06:26 White Blood Count 10.4 10^3/uL (4.4-10.8) Red Blood Count 3.96 10^6/uL (4.5-5.90) Hemoglobin 12.5 g/dL (13.5-17.5) Hematocrit 35.1 % (41.0-53.0) Mean Corpuscular Volume 88.7 fL (80.0-100.0) Mean Corpuscular Hemoglobin 31.5 pg (28.0-32.0) Mean Corpuscular Hemoglobin Concent 35.5 g/dL (32.0-36.0) Red Cell Distribution Width 13.4 % (11.8-14.3) Platelet Count 190 10^3/uL (140-450) Mean Platelet Volume 9.4 fL (6.9-10.8) Neutrophils (%) (Auto) 78.9 % (37.0-80.0) Lymphocytes (%) (Auto) 10.0 % (10.0-50.0) Monocytes (%) (Auto) 10.5 % (0.0-12.0) Eosinophils (%) (Auto) 0.4 % (0.0-7.0) Basophils (%) (Auto) 0.2 % (0.0-2.0) Neutrophils # (Auto) 8.2 10 ^3/uL (1.6-8.6) Lymphocytes # (Auto) 1.0 10 ^3/uL (0.4-5.4) Monocytes # (Auto) 1.1 10 ^3/uL (0-1.3) Eosinophils # (Auto) 0 10 ^3/uL (0-0.8) Basophils # (Auto) 0 10 ^3/uL (0-0.2) Nucleated Red Blood Cells 0.0 % Creatinine 0.66 mg/dL (0.700-1.30) Glomerular Filtration Rate Calc 109 mL/min (>90) Vancomycin Level Trough 16.4 ug/mL (5-10) Sodium Level 134 mmol/L (136-145) Potassium Level 3.5 mmol/L (3.5-5.1) Chloride Level 105 mmol/L (98-107) Carbon Dioxide Level 23 mmol/L (20-31) Anion Gap 6 (5-15) Blood Urea Nitrogen 12 mg/dL (9-23) BUN/Creatinine Ratio 17.1 (10.0-20.0) Serum Glucose 107 mg/dL (74-106) Calcium Level 8.4 mg/dL (8.7-10.4) Magnesium Level 1.9 mg/dL (1.6-2.6) Total Bilirubin 0.7 mg/dL (0.2-1.0) Aspartate Amino Transferase (AST) 23 U/L (13-40) Alanine Aminotransferase (ALT) 16 U/L (7-40) Alkaline Phosphatase 65 U/L (46-116) Total Protein 5.7 g/dL (5.7-8.2) Albumin 3.8 g/dL (3.2-4.8) Random Vancomycin Level < 3.0 ug/mL (5-10) Test 09/01/24 09:35 09/01/24 08:47 Prothrombin Time 12.2 sec (9.3-11.8) Prothrombin Time INR 1.17 (0.9-1.15) Activated Partial Thromboplast Time 36.6 SEC (24.5-34.5) Lactic Acid Level 1.3 mmol/L (0.4-2.0) Urine Color [address] (Yellow) Urine Clarity Cloudy (Clear) Urine pH 5.5 (5.0-9.0) Urine Specific [place] 1.021 (1.001-1.035) Urine Protein 1+ (Negative) Urine Ketones Negative (Negative) Urine Blood 2+ /uL (Negative) Urine Nitrite Negative (Negative) Urine Bilirubin Negative (Negative) Urine Urobilinogen Normal mg/dL (Negative) Urine Leukocyte Esterase 3+ /uL (Negative) Urine RBC 15 /hpf (0 - 3) Urine WBC Clumps Present /hpf (None Seen) Urine Microscopic WBC 606 /HPF (0-3) Urine Squamous Epithelial Cells Few /hpf (<5) Urine Bacteria Mod /hpf (None Seen) Urine Glucose Normal mg/dL (Normal) Other Laboratory Tests 09/04/24 05:45 09/03/24 04:26 Brief Hx & Hospital Course: 58-YEAR-OLD MALE WITH A KNOWN HISTORY OF: NUMBER OBSTRUCTION STATUS POST COLOSTOMY STATUS POST REVERSAL OF COLOSTOMY, HISTORY OF FOLLOW UP CYCLE FISTULA AND RECURRENT UTI PRESENTED TO THE HOSPITAL WITH THE ABDOMINAL PAIN PELVIC PAIN AND DYSURIA FOUND TO HAVE 1. SEPSIS SECONDARY TO UTI 2. COMPLICATED UTI 3. ACUTE KIDNEY INJURY SUSPECTED SECONDARY TO VASOMOTOR NEPHROPATHY 4. PREVIOUS HISTORY OF COLONIC OBSTRUCTION STATUS POST REVERSAL OF COLOSTOMY 5. PREVIOUS HISTORY OF COLOVESICAL FISTULA. 6. LEUKOCYTOSIS Final Diagnosis/Problems List 58-YEAR-OLD MALE WITH A KNOWN HISTORY OF: NUMBER OBSTRUCTION STATUS POST COLOSTOMY STATUS POST REVERSAL OF COLOSTOMY, HISTORY OF FOLLOW UP CYCLE FISTULA AND RECURRENT UTI PRESENTED TO THE HOSPITAL WITH THE ABDOMINAL PAIN PELVIC PAIN AND DYSURIA FOUND TO HAVE 1. SEPSIS SECONDARY TO UTI 2. COMPLICATED UTI 3. ACUTE KIDNEY INJURY SUSPECTED SECONDARY TO VASOMOTOR NEPHROPATHY 4. PREVIOUS HISTORY OF COLONIC OBSTRUCTION STATUS POST REVERSAL OF COLOSTOMY 5. PREVIOUS HISTORY OF COLOVESICAL FISTULA. 6. LEUKOCYTOSIS Discharge Disposition: Home Discharge Instruct/Medications Diet: Cardiac 2g Na,low cholest Activity: No Restrictions, As Tolerated Follow Up/Referral: The PCP in 1 week Medications: Antibiotic, albuterol as prescribed. New Medications: Albuterol Sulfate (Ventolin Mdi) 90 Mcg Ih 90 MCG IN Q4HP PRN, #1 INH Cefdinir (Cefdinir) 300 Mg Cap 1 CAP PO BID PRN for 7 Days, #14 CAP Scheduled PRN Albuterol Sulfate (Ventolin Mdi), 90 MCG IN Q4HP PRN Cefdinir (Cefdinir), 1 CAP PO BID PRN Discharge Statement: "Patient was advised to return to the ER or call 911 if any headaches, dizziness, shortness of breath, chest pain, abdominal pain, bleeding, fevers, or worsening of medical condition. Patient was counseled about treatment plan, medications, possible side effects, patientverbalized understanding. All questions were answered to the best of my ability. This discharge took greater then 30 minutes in planning, reviewing documentation, counseling the patient, and discussing with other team members." ASSESSMENT ASSESSMENT Assessment 58-YEAR-OLD MALE WITH A KNOWN HISTORY OF: NUMBER OBSTRUCTION STATUS POST COLOSTOMY STATUS POST REVERSAL OF COLOSTOMY, HISTORY OF FOLLOW UP CYCLE FISTULA AND RECURRENT UTI PRESENTED TO THE HOSPITAL WITH THE ABDOMINAL PAIN PELVIC PAIN AND DYSURIA FOUND TO HAVE 1. SEPSIS SECONDARY TO UTI 2. COMPLICATED UTI 3. ACUTE KIDNEY INJURY SUSPECTED SECONDARY TO VASOMOTOR NEPHROPATHY 4. PREVIOUS HISTORY OF COLONIC OBSTRUCTION STATUS POST REVERSAL OF COLOSTOMY 5. PREVIOUS HISTORY OF COLOVESICAL FISTULA. 6. LEUKOCYTOSIS ANA SOOD MD Sep 04, 2024 17:25
== END 2024-09-04 19:00 | disposition home or self-care (01) | DRG 720 ==
LOC: ER 08:39 → OVERFLOW 15:16 → WEST WING 20:40
PROVIDERS: ADMIT Internal Medicine; ATTEND Internal Medicine
DX: A41.9 Sepsis, unspecified organism (principal); N17.0 Acute kidney failure with tubular necrosis; J44.9 Chronic obstructive pulmonary disease, unspecified; E86.0 Dehydration; N39.0 Urinary tract infection, site not specified; Z87.891 Personal history of nicotine dependence
CPT/HCPCS: 36415; 71045; 80048; 80053; 80202; 81001; 82565; 83605; 83735; 85025; 85610; 85730; 87040; 87086; 87493; 93005; 94640; 96365; 96366; 96367; 99291; G0378